=== PATIENT | male | born 1995 | race Caucasian/White ===

== ENCOUNTER 2024-04-21 09:01 | Day surgery (SDC) | payer MEDICARE, MEDICAID ==
[2024-04-16 10:54] VITALS: BMI 22.4
[2024-04-21] MEDS ORDERED: Acetaminophen 500 MG TAB ONE (09:30)
[2024-04-21] MEDS ORDERED: Ketorolac Tromethamine 30 MG (1 mL) VIAL ONE (09:30)
[2024-04-21 09:48] LABS: Hemoglobin 15.2 g/dL (13.5-17.5); Mean Corpuscular HGB CONC 35.3 g/dL (32.0-36.0); Mean Corpuscular Volume 99.1 fL (81.2-95.1); Mean Platelet Volume 9.6 fL (7.4-10.4); Platelet Count 241 10x3/uL (150-450); RBC Distribution Width 12.4 % (11.5-14.5); Red Blood Cell (RBC) Count 4.34 10x6/uL (4.32-5.72); White Blood Cell (WBC) Count 4.9 10x3/uL (3.5-10.5)
[2024-04-21 10:01] LABS: Anion Gap 12 mmol/L (10-20); BUN (Urea Nitrogen) 11 mg/dL (8.9-20.6); Calc. Creatinine Clearance 71 mL/min (70-130); Calcium 9.5 mg/dL (7.8-10.44); Carbon Dioxide 29 mmol/L (22-29); Chloride 106 mmol/L (98-107); Estimated GFR 94; Glucose 95 mg/dL (70-105); Sodium 143 mmol/L (136-145)
[2024-04-21] MEDS ORDERED: Sevoflurane 250 ML INH ANEST BOTTLE ONE (10:43)
[2024-04-21] MEDS ORDERED: Midazolam HCl 2 mg/2 ml Vial ONE (10:56)
[2024-04-21] MEDS ORDERED: Ondansetron PF 4 MG/2 ML Vial ONE (11:28)
[2024-04-21] MEDS ORDERED: Dexamethasone 4 mg/ml Vial ONE (11:28)
[2024-04-21] MEDS ORDERED: Rocuronium Bromide 10 MG/ML (10ML VIAL) ONE (11:28)
[2024-04-21] MEDS ORDERED: PROPOFOL 20 ML ONE (11:28)
[2024-04-21] MEDS ORDERED: Fentanyl 250 MCG/5 ML VIAL ONE (11:28)
[2024-04-21] MEDS ORDERED: Lidocaine 1% PF 5 ML VIAL ONE (11:28)
[2024-04-21] MEDS ORDERED: Bupivacaine/Epinephrine 0.25% 30 ML VIAL ONE (11:34)
[2024-04-21] MEDS ORDERED: CEFAZOLIN 2 GM VIAL ONE (11:40)
[2024-04-21] MEDS ORDERED: PHENYLEPHRINE-NS 100 MCG/ML 10 ML SYRINGE ONE (11:55)
[2024-04-21] MEDS ORDERED: SUGAMMADEX SODIUM 200 MG/2 ML VIAL ONE (13:56)
[2024-04-21] MEDS ORDERED: HYDROcodone/Acetaminophen 5/325 mg Tablet ONE (15:01)
== END 2024-04-21 15:37 | disposition home or self-care (01) ==
LOC: CSHSDC 09:01
PROVIDERS: ATTEND Specialist
PROC: 0YQA4ZZ Repair Bilateral Inguinal Region, Percutaneous Endoscopic Approach (ICD-10-PCS; principal; 2024-04-21)
DX: K40.20 Bilateral inguinal hernia, without obstruction or gangrene, not specified as recurrent (principal)
CPT/HCPCS: 49650; 80048; 85027; C1781; J1100; J1885; J2250; J2405; J2704; J3010; 36415